=== PATIENT | male | born 1990 | race American Indian/Alaskan Native ===

== ENCOUNTER 2020-06-17 02:39 | Emergency (ER) | payer SELFPAY ==
[2020-06-17] MEDS ORDERED: SODIUM CHLORIDE 0.9% 500 ML 500 ML IV ONE (03:13)
[2020-06-17] MEDS ORDERED: fentaNYL 100 MCG/2 ML INJ IV ONE (03:13)
[2020-06-17] MEDS ORDERED: ONDANSETRON 4 MG/2 ML INJ IV ONE (03:13)
[2020-06-17] MEDS ORDERED: KETAMINE 500 MG/5 ML VIAL MDV IV ONE (03:13)
[2020-06-17] MEDS ORDERED: propofoL 200 MG/20 ML VIAL IV ONE (03:13)
--- NOTE | 2020-06-17 03:14 | Emergency Department Report ---
Upper Extremity - HPI Chief Complaint: Shoulder Injury Stated Complaint: left shoulder pain Time Seen by Provider: 06/17/20 03:07 Upper Extremity: Left Shoulder Occurred When: Today Mechanism: Hit with Object Severity: severe Symptoms: Yes Pain with Movement, Yes Deformity, Yes Limited Range of Movement, No Numbness, No Weakness, No Swelling, No Bruising/Ecchymosis, No Laceration or Abrasion Other History: The patient is a 30-year-old gentleman who is not known to myself previously. The patient is right-hand dominant, and recreationally consumes tobacco, and cannabis. The patient presents to the ER with an accidental left- sided shoulder dislocation. This is not his first shoulder dislocation. Patient was reportedly at work, and a box fell onto his left arm and he tried to catch it. He denies additional injuries and he denies additional complaints. He has sharp throbbing left-sided shoulder pain, which increases with palpation and range of motion, and it decreases with rest. He has no other injuries, no other complaints. He last ate at 8:30 PM on June 16. ED Review of Systems ROS: Stated complaint: RT SHOULDER DISLOCATION Other details as noted in HPI Comment: All other systems reviewed and negative Musculoskeletal: arthralgia, myalgia ED Past Medical Hx - Past Medical History Previous Medical History?: Yes Hx Asthma: Yes - Social History Smoking Status: Current Every Day Smoker Substance Use Type: None - Medications Home Medications: Home Medications Medication Instructions Recorded Confirmed Last Taken Type Acetaminophen [Non-Aspirin Extra 500 mg PO Q6HR PRN #30 tablet 06/17/20 Unknown Rx Strength] Ibuprofen [Motrin] 600 mg PO Q8H PRN #30 tablet 06/17/20 Unknown Rx Morphine Sulfate [Morphine Sulfate 7.5 mg PO Q6HR PRN #10 tablet 06/17/20 Unknown Rx IR] Upper Extremity Exam - Exam General: Vital signs noted. No distress. Alert and acting appropriately. 2+ pulses noted in the bilateral upper and lower extremities. There is no palpable cord. negative Homans sign. Muscular compartments are soft. The pelvis is stable. There is isolated left shoulder point tenderness. There is an obvious left- sided shoulder deformity. Sensation is intact to light touch in the bilateral deltoid, median, radial, ulnar distributions. No facial droop. Tongue midline. Extraocular movements intact bilaterally. Facial sensation intact to light touch in V1, V2, V3 distribution bilaterally. 5 and a 5 strength in 4 extremities. Sensation intact to light touch in 4 extremities. Head and Torso: No HEENT Abnormality, No Neck Tenderness, No Chest/Lungs Abnormality, No Abdominal Tenderness, No Back Tenderness Shoulder Exam: Yes Shoulder Tenderness (There is left-sided shoulder tenderness. There is no right-sided shoulder tenderness), Yes Normal Range of Motion in Shoulder (Normal range of motion in the right shoulder. Range of motion decrea sed in the left shoulder), Yes Shoulder Deformity (There is a left-sided shoulder dislocation), No Clavicle Tenderness, No AC Joint Tenderness Arm Exam: No Arm/Humerus Tenderness, No Arm Deformity Elbow: Yes Normal Range of Motion in Elbow, No Elbow Tenderness, No Elbow Deformity Forearm: No Forearm Tenderness, No Forearm Deformity, No Pain with Pronation, No Pain with Supination Wrist: Yes Normal ROM in Wrist, No Wrist Tenderness, No Wrist Deformity, No Snuffbox Tenderness, No Pain with Axial Thumb Compression Hand: Yes Normal ROM in Digit(s), No Hand Tenderness, No Hand Deformity, No Digit Tenderness, No Digit(s) Deformity, No Tendon Dysfunction CMS Exam: Yes Normal Distal Pulses, Yes Normal Capillary Refill, Yes Normal Distal Sensation, No Broken Skin ED Course Vital Signs 06/17/20 02:42 Temperature 98.9 F Pulse Rate 70 Respiratory 18 Rate Blood Pressure 134/94 O2 Sat by Pulse 100 Oximetry - Reevaluation(s) Reevaluation #1: 06/17/20 05:22 After close reduction, the patient was moving his hand and wrist without difficulty, playing on his cellular phone, and is neurovascularly intact, has good robust pulses in the bilateral radial distribution, and sensation and motor function remained intact in the bilateral deltoid, median, radial, and ulnar distributions. - Moderate Sedation Indications: fracture/dislocation redu Presedation Evaluation: Patient ASA 2. Speaking in full sentences. No other injuries. No other complaints. Patient smokes tobacco and cannabis. No alcohol today. No smoke products today. No immediate contraindication to proceeding with moderate sedation. Risks, benefits and alternatives were discussed with the patient, and the patient provided verbal and written informed consent for moderate sedation with close reduction of left-sided shoulder dislocation. ASA Class: II Mallampati Airway Score: 1 Preparation: satellite project site monitor applied, pulse oximeter, capnometry used, supplemental O2 applied Ketamine: IV Ketamine Dose: 100 IV Propofol Dose (mgs): 100 Complications: none Patient Tolerated Procedure: well - Orthopedic Joint Reduction Joint #1 Consent Obtained: verbal consent, written consent, emergent situation Time Out Performed: Yes Side: left Joint Reduction Location: shoulder Analgesia: moderate sedation Technique Used: direct manipulation Post-Reduction Neuro Exam: intact Post-Reduction Vascular Exam: intact Post Reduction X-Ray Obtained: Yes Post Reduction X-Ray Results: reduced Splint Applied: Yes Patient Tolerated Procedure: well - Orthopedic Splinting/Casting Injury #1 Side: left Upper Extremity Injury Location: shoulder Upper Extremity Immobilizer: sling/shoulder immobilize ED Medical Decision Making - Lab Data Vital Signs 06/17/20 06/17/20 06/17/20 02:42 03:20 03:28 Temperature 98.9 F Temperature [ Post-Procedure] Temperature [ Pre-Procedure] Pulse Rate 70 Pulse Rate [ Intra-Procedure ] Pulse Rate [ Post-Procedure] Pulse Rate [Pre -Procedure] Respiratory 18 16 Rate Respiratory Rate [Intra- Procedure] Respiratory Rate [Post- Procedure] Respiratory Rate [Pre- Procedure] Blood Pressure 134/94 Blood Pressure [Intra- Procedure] Blood Pressure [Post-Procedure ] Blood Pressure [Pre-Procedure] O2 Sat by Pulse 100 98 Oximetry O2 Sat by Pulse Oximetry [ Intra-Procedure ] O2 Sat by Pulse Oximetry [Post -Procedure] O2 Sat by Pulse Oximetry [Pre- Procedure] 06/17/20 06/17/20 06/17/20 03:46 03:56 04:00 Temperature Temperature [ Post-Procedure] Temperature [ 98 F Pre-Procedure] Pulse Rate 58 L Pulse Rate [ 73 Intra-Procedure ] Pulse Rate [ Post-Procedure] Pulse Rate [Pre 55 L -Procedure] Respiratory 11 L Rate Respiratory 12 Rate [Intra- Procedure] Respiratory Rate [Post- Procedure] Respiratory 14 Rate [Pre- Procedure] Blood Pressure 134/83 Blood Pressure 127/90 [Intra- Procedure] Blood Pressure [Post-Procedure ] Blood Pressure 148/88 [Pre-Procedure] O2 Sat by Pulse Oximetry O2 Sat by Pulse 100 Oximetry [ Intra-Procedure ] O2 Sat by Pulse Oximetry [Post -Procedure] O2 Sat by Pulse 100 Oximetry [Pre- Procedure] 06/17/20 04:05 Temperature Temperature [ 97.7 F Post-Procedure] Temperature [ Pre-Procedure] Pulse Rate Pulse Rate [ Intra-Procedure ] Pulse Rate [ 65 Post-Procedure] Pulse Rate [Pre -Procedure] Respiratory Rate Respiratory Rate [Intra- Procedure] Respiratory 12 Rate [Post- Procedure] Respiratory Rate [Pre- Procedure] Blood Pressure Blood Pressure [Intra- Procedure] Blood Pressure 143/97 [Post-Procedure ] Blood Pressure [Pre-Procedure] O2 Sat by Pulse Oximetry O2 Sat by Pulse Oximetry [ Intra-Procedure ] O2 Sat by Pulse 100 Oximetry [Post -Procedure] O2 Sat by Pulse Oximetry [Pre- Procedure] Vital Signs 06/17/20 06/17/20 06/17/20 02:42 03:20 03:28 Temperature 98.9 F Temperature [ Post-Procedure] Temperature [ Pre-Procedure] Pulse Rate 70 Pulse Rate [ Intra-Procedure ] Pulse Rate [ Post-Procedure] Pulse Rate [Pre -Procedure] Respiratory 18 16 Rate Respiratory Rate [Intra- Procedure] Respiratory Rate [Post- Procedure] Respiratory Rate [Pre- Procedure] Blood Pressure 134/94 Blood Pressure [Intra- Procedure] Blood Pressure [Post-Procedure ] Blood Pressure [Pre-Procedure] O2 Sat by Pulse 100 98 Oximetry O2 Sat by Pulse Oximetry [ Intra-Procedure ] O2 Sat by Pulse Oximetry [Post -Procedure] O2 Sat by Pulse Oximetry [Pre- Procedure] 06/17/20 06/17/20 06/17/20 03:46 03:56 04:00 Temperature Temperature [ Post-Procedure] Temperature [ 98 F Pre-Procedure] Pulse Rate 58 L Pulse Rate [ 73 Intra-Procedure ] Pulse Rate [ Post-Procedure] Pulse Rate [Pre 55 L -Procedure] Respiratory 11 L Rate Respiratory 12 Rate [Intra- Procedure] Respiratory Rate [Post- Procedure] Respiratory 14 Rate [Pre- Procedure] Blood Pressure 134/83 Blood Pressure 127/90 [Intra- Procedure] Blood Pressure [Post-Procedure ] Blood Pressure 148/88 [Pre-Procedure] O2 Sat by Pulse Oximetry O2 Sat by Pulse 100 Oximetry [ Intra-Procedure ] O2 Sat by Pulse Oximetry [Post -Procedure] O2 Sat by Pulse 100 Oximetry [Pre- Procedure] 06/17/20 04:05 Temperature Temperature [ 97.7 F Post-Procedure] Temperature [ Pre-Procedure] Pulse Rate Pulse Rate [ Intra-Procedure ] Pulse Rate [ 65 Post-Procedure] Pulse Rate [Pre -Procedure] Respiratory Rate Respiratory Rate [Intra- Procedure] Respiratory 12 Rate [Post- Procedure] Respiratory Rate [Pre- Procedure] Blood Pressure Blood Pressure [Intra- Procedure] Blood Pressure 143/97 [Post-Procedure ] Blood Pressure [Pre-Procedure] O2 Sat by Pulse Oximetry O2 Sat by Pulse Oximetry [ Intra-Procedure ] O2 Sat by Pulse 100 Oximetry [Post -Procedure] O2 Sat by Pulse Oximetry [Pre- Procedure] - Radiology Data Radiology results: report reviewed, image reviewed Print Report Referring Physician: ALFREDO PETTY Patient Name: KIRTI GUTHRIE Date of : 1990 Sex: Male Report Date: 2020-06-17 Report Status: Finalized Findings [address] [address] XRay Report Signed Patient: KIRTI GUTHRIE MR#: [id number] : 1990 Acct:[id number] Age/Sex: 30 / M ADM Date: 06/17/20 Loc: ED Attending Dr: Ordering Physician: ALFREDO PETTY MD Date of Service: 06/17/20 Procedure(s): XR shoulder 2+V LT Accession Number(s): [id number] cc: ALFREDO PETTY MD Fluoro Time In Minutes: XR shoulder 2+V LT INDICATION: Left shoulder pain. COMPARISON: None available. FINDINGS: There is an anterior glenohumeral joint dislocation in the left shoulder. There is no appreciable fracture. Signer Name: Gerald Pressley MD Signed: 06/17/2020 4:14 AM Workstation Name: [id number] Transcribed By: SULMA Dictated By: Gerald Pressley MD Electronically Authenticated By: Gerald Pressley MD Signed Date/Time: 06/17/204 DD/ 2 TD/TT: Print Report Referring Physician: ALFREDO PETTY Patient Name: KIRTI GUTHRIE Date of : 1990 Sex: Male Report Date: 2020-06-17 Report Status: Finalized Findings [address] [address] XRay Report Signed Patient: KIRTI GUTHRIE MR#: [id number] : 1990 Acct:[id number] Age/Sex: 30 / M ADM Date: 06/17/20 Loc: ED Attending Dr: Ordering Physician: ALFREDO PETTY MD Date of Service: 06/17/20 Procedure(s): XR shoulder 2+V LT Accession Number(s): [id number] cc: ALFREDO PETTY MD Fluoro Time In Minutes: XR shoulder 2+V LT INDICATION: s/p reduction. COMPARISON: Examination earlier on 06/17/2020 FINDINGS: Previously demonstrated left glenohumeral joint dislocation has been reduced. There is no appreciable fracture. Signer Name: Gerald Pressley MD Signed: 06/17/2020 4:30 AM Workstation Name: [id number] Transcribed By: SULMA Dictated By: Gerald Pressley MD Electro nically Authenticated By: Gerald Pressley MD Signed Date/Time: 06/17/20429 DD/ 8 - Medical Decision Making Differential diagnosis, including but not limited to: Shoulder dislocation Assessment and plan: 30-year-old gentleman [id number], with recurrent shoulder dislocation. He has no additional injuries and no additional comp laints. He is neurovascularly intact pre-and post reduction. He provided verbal and written informed consent, and moderate sedation was performed, and the left shoulder was easily reduced. Shoulder sling was applied, and the patient recovered without incident. Patient is going to follow-up with Worker's Compensation physician, will be discharged with pain medication, left-sided shoulder sling, light duty, return precautions are reviewed Critical care attestation.: If time is entered above; I have spent that time in minutes in the direct care of this critically ill patient, excluding procedure time. ED Disposition Clinical Impression: Dislocation of left shoulder joint Qualifiers: Encounter type: initial encounter Qualified Code(s): S43.005A - Unspecified dislocation of left shoulder joint, initial encounter Disposition: DC-01 TO HOME OR SELFCARE Is pt being admited?: No Does the pt Need Aspirin: No Condition: Stable Instructions: Shoulder Dislocation (ED), Moderate Sedation (ED) Additional Instructions: Rest, avoid heavy lifting, and avoid strenuous physical activities. Keep the left shoulder sling in place. Follow-up with an orthopedic physician, sports physician or Worker's Compensation physician within the next 5 to 7 days for left-sided shoulder dislocation. 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 Patient may return to work, but should only participate in light duty. The patient should not use the left upper extremity for any work-related tasks, until cleared to do so by her primary care doctor, orthopedist, or sports medicine physician. Keep the shoulder sling in place, until instructed to discontinue it by 1 of the aforementioned physicians. Take the pain medications as needed and directed. Avoid consumption of alcohol, and smoke products. Please return to the emergency room right away with new pain, worsened pain, migration of pain, projectile vomiting, change in mental status, confusion, inability to tolerate liquid feeds, new, worsened or different symptoms not present on the initial emergency room evaluation Prescriptions: Morphine Sulfate [Morphine Sulfate IR] 7.5 mg PO Q6HR PRN #10 tablet PRN Reason: Pain , Severe (7-10) Ibuprofen [Motrin] 600 mg PO Q8H PRN #30 tablet PRN Reason: Pain Acetaminophen [Non-Aspirin Extra Strength] 500 mg PO Q6HR PRN #30 tablet PRN Reason: Pain , Severe (7-10) Referrals: [facility] [Provider Group] - 3-5 Days BUSTER MIMS MD [Staff Physician] - 3-5 Days Forms: Work/School Release Form(ED)
--- NOTE | 2020-06-17 04:19 | XRay Report ---
XR shoulder 2+V LT INDICATION: Left shoulder pain. COMPARISON: None available. FINDINGS: There is an anterior glenohumeral joint dislocation in the left shoulder. There is no appreciable fra cture. Signer Name: Gerald Pressley MD Signed: 06/17/2020 4:14 AM Workstation Name: [id number]
--- NOTE | 2020-06-17 04:34 | XRay Report ---
XR shoulder 2+V LT INDICATION: s/p reduction. COMPARISON: Examination earlier on 06/17/2020 FINDINGS: Previously demonstrated left glenohumeral joint dislocation has been reduced. There is no appreciable fracture. Signer Name: Gerald Pressley MD Signed: 06/17/2020 4:30 AM Workstation Name: [id number]
[2020-06-17 04:40] VITALS: BP 143/97
== END 2020-06-17 05:15 | disposition home or self-care (01) ==
LOC: ED 02:39
DX: S43.005A Unspecified dislocation of left shoulder joint, initial encounter (principal); J45.909 Unspecified asthma, uncomplicated; F17.200 Nicotine dependence, unspecified, uncomplicated; X58.XXXA Exposure to other specified factors, initial encounter; Y93.89 Activity, other specified; Y92.89 Other specified places as the place of occurrence of the external cause; Y99.8 Other external cause status
CPT/HCPCS: 23650; 73030; 96361; 96374; 96375; 99283; J2405; J2704; J3010; J7040

== ENCOUNTER 2020-09-24 01:45 | Emergency (ER) | payer SELFPAY ==
[2020-09-24] MEDS ORDERED: KETAMINE 500 MG/5 ML VIAL MDV IV ONE ×2 (02:26→03:06)
[2020-09-24] MEDS ORDERED: ONDANSETRON 4 MG/2 ML INJ IV ONE (02:26)
[2020-09-24] MEDS ORDERED: fentaNYL 100 MCG/2 ML INJ IV ONE (02:26)
[2020-09-24] MEDS ORDERED: propofoL 200 MG/20 ML VIAL IV ONE ×2 (02:26→03:06)
--- NOTE | 2020-09-24 02:28 | Emergency Department Report ---
Upper Extremity - HPI Chief Complaint: Shoulder Injury Stated Complaint: LEFT ARM DISLOCATED Time Seen by Provider: 09/24/20 02:19 Upper Extremity: Left Shoulder Occurred When: Today Mechanism: Twist, Other Severity: severe Symptoms: Yes Pain with Movement, Yes Deformity, Yes Limited Range of Movement, No Numbness, No Weakness, No Swelling, No Bruising/Ecchymosis, No Laceration or Abrasion Other History: The patient was evaluated in the emergency department for symptoms described in the history of present illness. He/she was evaluated in the context of the global COVID-19 pandemic, which necessitated consideration that the patient might be at risk for infection with the virus that causes COVID-19. Institutional protocols and algorithms that pertain to the evaluation of patients at risk for COVID-19 are in a state of rapid change based on information released by regulatory bodies including the CDC and federal and state organizations. These policies and algorithms were followed during the patient's care in the emergency department. Please note that these policies, procedures and recommendations changed on a rapid basis. Patient is a 30-year-old gentleman, who is right-hand dominant, presenting to the ER today with a complaint of left shoulder pain and possible dislocation. He states that he took a bag off of his shoulder, and his hand got stuck in the handle of the bag, and "jerked my shoulder out of place." No other injuries. No other complaints. Denies all other symptoms. Last ate at 10:30 PM yesterday. No alcohol consumption. Specifically denies weakness and numbness. ED Review of Systems ROS: Stated complaint: LEFT ARM DISLOCATED Other details as noted in HPI Comment: All other systems reviewed and negative Musculoskeletal: arthralgia, myalgia Neurological: denies: weakness, numbness, paresthesias Psychiatric: anxiety ED Past Medical Hx - Past Medical History Previous Medical History?: Yes Hx Asthma: Yes Additional medical history: Left shoulder dislocation - Surgical History Past Surgical History?: No - Social History Smoking Status: Current Every Day Smoker Substance Use Type: None - Medications Home Medications: Home Medications Medication Instructions Recorded Confirmed Last Taken Type Acetaminophen [Non-Aspirin Extra 500 mg PO Q6HR PRN #30 tablet 06/17/20 Unknown Rx Strength] Ibuprofen [Motrin] 600 mg PO Q8H PRN #30 tablet 06/17/20 Unknown Rx Morphine Sulfate [Morphine Sulfate 7.5 mg PO Q6HR PRN #10 tablet 06/17/20 Unknown Rx IR] Upper Extremity Exam - Exam General: Vital signs noted. Moderate distress. Alert and acting appropriately. There is no facial droop. The tongue is midline. Extraocular movements are intact bilaterally. There is 5 out of 5 strength in bilateral upper and lower extremities. Sensation is intact to light touch bilateral upper and lower extremities. There is no past-pointing. There is no pronator drift. There is normal [id number]. There is a normal gait. 2+ pulses noted in the bilateral upper and lower extremities. There is no palpable cord. negative Homans sign. Muscular compartments are soft. The pelvis is stable. Range of motion intact in the right upper extremity, bilateral lower extremity, and left elbow and left wrist. There is a palpable left-sided shoulder deformity. 2+ pulses noted in the bilateral upper extremities. Sensation is intact to light touch in the bilateral deltoid, median, radial, ulnar distribution. Head and Torso: No HEENT Abnormality, No Neck Tenderness, No Chest/Lungs Abnormality, No Abdominal Tenderness, No Back Tenderness Shoulder Exam: Yes Shoulder Tenderness, Yes Shoulder Deformity, No Clavicle Tenderness, No Normal Range of Motion in Shoulder, No AC Joint Tenderness Arm Exam: No Arm/Humerus Tenderness, No Arm Deformity Elbow: Yes Normal Range of Motion in Elbow, No Elbow Tenderness, No Elbow Deformity Forearm: No Forearm Tenderness, No Forearm Deformity, No Pain with Pronation, No Pain with Supination Wrist: Yes Normal ROM in Wrist, No Wrist Tenderness, No Wrist Deformity, No Snuffbox Tenderness, No Pain with Axial Thumb Compression Hand: Yes Normal ROM in Digit(s), No Hand Tenderness, No Hand Deformity, No Digit Tenderness, No Digit(s) Deformity, No Tendon Dysfunction CMS Exam: Yes Normal Distal Pulses, Yes Normal Capillary Refill, Yes Normal Distal Sensation, No Broken Skin ED Course Vital Signs 09/24/20 01:52 Temperature 98.0 F Pulse Rate 83 Respiratory 18 Rate Blood Pressure 148/91 O2 Sat by Pulse 99 Oximetry - Reevaluation(s) Reevaluation #1: 09/24/20 02:46 Differential diagnosis, including but not limited to: Left-sided shoulder dislocation Assessment and plan: 38-year-old man with isolated left shoulder dislocation, clinically sober, with a GCS of 15, no other injuries, last oral intake was over 4 hours ago. Patient ASA 1, for moderate sedation, and he reports having received sedation in the past. I have personally taken care of this patient in the past for right-sided shoulder dislocation. Patient has provided verbal and written informed consent for moderate sedation and closed reduction of left sided shoulder dislocation. We will therefore medicate him For his pain, place patient on a prop maker, initiate standard hospital moderate sedation procedure and protocol, and ideally reduce shoulder dislocation. 09/24/20 03:55 Patient reexamined. Dislocation has been successfully reduced. Patient informed of postreduction radiographic findings. He remains neurovascularly intact. Placed in shoulder sling, light duty, he will need to follow-up with outpatient orthopedics. Have discussed this with the patient. We also discussed the need to follow-up with an orthopedist for potential initiation of physical therapy and rehab. We also discussed the possibility of soft tissue injury and ligamentous injury. The patient has verbalized understanding. 09/24/20 03:56 - Moderate Sedation Indications: fracture/dislocation redu ASA Class: I Mallampati Airway Score: 1 Time of Last PO Intake: 22:30 (09/23/2020) Preparation: prop maker applied, pulse oximeter, capnometry used, supplemental O2 applied, suction/airway equipment at bedside Ketamine: IV Ketamine Dose: 50 IV Propofol Dose (mgs): 50 Complications: none Patient Tolerated Procedure: well - Orthopedic Joint Reduction Joint #1 Consent Obtained: verbal consent, written consent, emergent situation Time Out Performed: Yes Joint Reduction Location: shoulder Analgesia: moderate sedation Technique Used: direct manipulation Post-Reduction Neuro Exam: intact Post-Reduction Vascular Exam: intact Post Reduction X-Ray Obtained: Yes Post Reduction X-Ray Results: reduced Splint Applied: Yes Patient Tolerated Procedure: well - Orthopedic Splinting/Casting Injury #1 Side: left Upper Extremity Injury Location: shoulder Upper Extremity Immobilizer: sling/shoulder immobilize ED Medical Decision Making - Lab Data Vital Signs 09/24/20 01:52 Temperature 98.0 F Pulse Rate 83 Respiratory 18 Rate Blood Pressure 148/91 O2 Sat by Pulse 99 Oximetry - Radiology Data Radiology results: pending, report reviewed, image reviewed XR shoulder 2+V LT INDICATION: left shoulder pain COMPARISON: None. FINDINGS/IMPRESSION: Subcoracoid left anterior humeral dislocation. Suspected depression fracture of the lateral aspect of the humeral head. Signer Name: Daniele Barone MD Signed: 09/24/2020 1:57 AM Workstation Name: [id number] XR shoulder 2+V LT INDICATION: s/p reductions COMPARISON: 06/17/2020. FINDINGS/IMPRESSION: Interval reduction with normal alignment of the glenohumeral joint. An associated Hill-Sachs depression fracture of the lateral aspect of the humeral head is present which is a common finding after dislocation. Signer Name: Daniele Barone MD Signed: 09/24/2020 2:28 AM Workstation Name: [id number] Critical care attestation.: If time is entered above; I have spent that time in minutes in the direct care of this critically ill patient, excluding procedure time. ED Disposition Clinical Impression: Shoulder dislocation Qualifiers: Encounter type: initial encounter Laterality: left Qualified Code(s): S43.005A - Unspecified dislocation of left shoulder joint, initial encounter Disposition: - TO HOME OR SELFCARE Is pt being admited?: No Does the pt Need Aspirin: No Condition: Good Instructions: Shoulder Dislocation, Moderate Conscious Sedation, Adult Additional Instructions: Please keep the shoulder sling in place. Follow-up with an orthopedist within the next 5 to 7 days. Take the pain medication as needed and directed. Avoid heavy lifting and strenuous physical activities. Do not remove the shoulder sling, or participate in heavy lifting/sports until cleared to do so by an orthopedic or primary care physician. Please return to the emergency room right away with new pain, worsening pain, migration of pain, projectile vomiting, change in mental status, confusion, inability to tolerate liquid feeds, new, worsening or different symptoms not present on the initial emergency room evaluation. Referrals: BUSTER MIMS MD [Staff Physician] - 3-[address] [facility] [Provider Group] - 3-5 Days Forms: Work/School Release Form(ED)
[2020-09-24] MEDS ORDERED: SODIUM CHLORIDE 0.9% 1000 ML 1,000 ML ONE (02:36)
--- NOTE | 2020-09-24 03:01 | XRay Report ---
XR shoulder 2+V LT INDICATION: left shoulder pain COMPARISON: None. FINDINGS/IMPRESSION: Subcoracoid left anterior humeral dislocation. Suspected depression fracture of the lateral aspect of the humeral head. Signer Name: Daniele Barone MD Signed: 09/24/2020 2:57 AM Workstation Name: [id number]
--- NOTE | 2020-09-24 03:33 | XRay Report ---
XR shoulder 2+V LT INDICATION: s/p reductions COMPARISON: 06/17/2020. FINDINGS/IMPRESSION: Interval reduction with normal alignment of the glenohumeral joint. An associated Hill-Sachs depressi on fracture of the lateral aspect of the humeral head is present which is a common finding after disl ocation. Signer Name: Daniele Barone MD Signed: 09/24/2020 3:28 AM Workstation Name: [id number]
[2020-09-24 04:07] VITALS: BP 138/84
== END 2020-09-24 04:10 | disposition home or self-care (01) ==
LOC: ED 01:45
DX: S43.005A Unspecified dislocation of left shoulder joint, initial encounter (principal); J45.909 Unspecified asthma, uncomplicated; F17.200 Nicotine dependence, unspecified, uncomplicated; Z79.899 Other long term (current) drug therapy; X58.XXXA Exposure to other specified factors, initial encounter; Y93.89 Activity, other specified; Y92.89 Other specified places as the place of occurrence of the external cause; Y99.8 Other external cause status
CPT/HCPCS: 23650; 73030; 99283; J2704; J7030; J2405; J3010